=== PATIENT | female | born 1945 | race Caucasian/White ===

== ENCOUNTER 2017-03-29 08:00 | Emergency (ER) | payer MEDICARE, OTHER ==
[2017-03-29 08:00] VITALS: BP 95/66
--- NOTE | 2017-03-29 08:58 | EKG ---
[address] [address] Test Date: 2017-03-29 Test Time: 08:38:24 Pat Name: CHERYL ART Department: Room: Gender: F Industrial Tractor Driver: JEAN CARLOS : 1945 Requested By: DENNY LUA Order Number: [id number] Reading MD: Nathaniel Baez Measurements Intervals [place] Rate: 51 P: 60 OK: 192 QRS: 25 QRSD: 70 T: 47 QT: 448 QTc: 415 Interpretive Statements SINUS RHYTHM NONSPECIFIC ST-T WAVE CHANGES. RI6.01 No previous ECG available for comparison Electronically Signed On 04-03-2017 9:34:25 DECAL APPLIER by Nathaniel Baez
[2017-03-29] MEDS ORDERED: ONDANSETRON PF 4 MG/2 ML VIAL. IV ONE (09:00)
[2017-03-29] MEDS ORDERED: IV NORMAL SALINE 1,000ML 1,000 ML IV ONE (09:00)
--- NOTE | 2017-03-29 09:22 | PHYS DOC ---
Adult General Chief Complaint Chief Complaint: DIZZY/LIGHT HEADED [facility] HPI Patient is a 71 year old F who presents with nausea and lightheadedness just after taking her Fosamax this morning. She takes no other medications other than Fosamax and today was the first dose of Fosamax. Her symptoms resolved without intervention. She has no other associated symptoms. She has no other exacerbating or relieving factors. Review of Systems Review of Systems Constitutional: Denies fever or chills [] Eyes: Denies change in visual acuity, redness, or eye pain [] HENT: Denies nasal congestion or sore throat [] Respiratory: Denies cough or shortness of breath [] Cardiovascular: No additional information not addressed in HPI [] GI: Denies abdominal pain, nausea, vomiting, bloody stools or diarrhea [] : Denies dysuria or hematuria [] Musculoskeletal: Denies back pain or joint pain [] Integument: Denies rash or skin lesions [] Neurologic: Denies headache, focal weakness or sensory changes [] Endocrine: Denies polyuria or polydipsia [] All other systems were reviewed and found to be within normal limits, except as documented in this note. Family History Family History No particular medical history was reported Current Medications Current Medications Current medications were reviewed Current Medications Medications (Trade) Dose Ordered Sig/[facility] Start Time Stop Time Status Last Admin Dose Admin Ondansetron HCl (Zofran) 4 mg 1X ONCE 03/29/17 09:00 03/29/17 09:01 DC Sodium Chloride 1,000 ml @ 1,000 mls/hr 1X ONCE 03/29/17 09:00 03/29/17 09:59 03/29/17 08:58 1,000 MLS/HR Allergies Allergies Allergies Coded Allergies Type Severity Reaction Last Updated Verified acetaminophen Allergy Unknown 03/29/17 Yes codeine Allergy Unknown 03/29/17 Yes morphine Allergy Unknown 03/29/17 Yes oxycodone Allergy Unknown 03/29/17 Yes promethazine Allergy Unknown 03/29/17 Yes tramadol Allergy Unknown 03/29/17 Yes Physical Exam Physical Exam Constitutional: Well developed, well nourished, no acute distress, non-toxic appearance. [] HENT: Normocephalic, atraumatic, Eyes: EOMI, conjunctiva normal, no discharge. [] Neck: Normal range of motion, no tenderness, supple, no stridor. [] Cardiovascular:Heart rate regular rhythm, no murmur [] Lungs & Thorax: Bilateral breath sounds clear to auscultation [] Abdomen: Bowel sounds normal, soft, no tenderness, no masses, no pulsatile masses. [] Skin: Warm, dry, no erythema, no rash. [] Extremities: No tenderness, no cyanosis, no clubbing, ROM intact, no edema. [] Neurologic: Alert and oriented X 3, normal motor function, normal sensory function, no focal deficits noted. [] Psychologic: Affect normal, judgement normal, mood normal. [] Current Patient Data Vital Signs Heart rate 50 - 60, all other vital signs within normal limits. Please review nursing documentation for specifics EKG EKG [] Radiology/Procedures Radiology/Procedures [] Course & Med Decision Making Course & Med Decision Making Pertinent Labs and Imaging studies reviewed. (See chart for details) [] Dragon Disclaimer Dragon Disclaimer This electronic medical record was generated, in whole or in part, using a voice recognition dictation system. Departure Departure: Impression: Primary Impression: Nausea Additional Impression: Lightheadedness Disposition: 01 HOME, SELF-CARE Condition: STABLE Referrals: PCP,NO (PCP) Patient Instructions: Dizziness Additional Instructions: Vielka was seen in the emergency department for lightheadedness and nausea. No emergency medical condition was found on history or physical exam. Her symptoms resolved. She was given IV fluids. Her primary care doctor was contacted by phone. She was encouraged follow-up with her primary care doctor as needed for further management. Problem Qualifiers DENNY LUA MD Mar 29, 2017 09:22
== END 2017-03-29 10:12 | disposition home or self-care (01) ==
LOC: ER 08:00
DX: R11.0 Nausea (principal); R42 Dizziness and giddiness; Z88.5 Allergy status to narcotic agent; Z88.6 Allergy status to analgesic agent; Z88.8 Allergy status to other drugs, medicaments and biological substances
CPT/HCPCS: 93005; 96360; 99284-25; J7030

== ENCOUNTER 2020-02-01 01:09 | Emergency (ER) | payer MEDICARE, OTHER ==
[~2020-02-01] VITALS: Ht 170.2 cm; Wt 58.0 kg
--- NOTE | 2020-02-01 01:24 | PHYS DOC ---
Past History Past Medical History: Other Past Surgical History: No Surgical History Alcohol Use: None Drug Use: None General Adult EDM: Chief Complaint: CHEST PAIN HPI: HPI: 74 yo F PMH OA presents to the ed with c/o sharp chest pain that started around 3:30 PM yesterday but radiates to her shoulders and upper back with associated nausea and one episode of nonbloody nonbilious vomiting. Patient states symptoms resolved around 7:15 PM and return around 9 PM. At that point the pain was intensifying and moved to her jaw. States around 1 AM started feeling " dizzy," described as " I feel drugged in my head, I am not thinking right." Per RN patient became weak in the waiting room chair but did not fully pass out. Patient reports she only follows at [facility] [facility] and had an ultrasound November 09 that showed gallstones. History of a chemical stress test within the past 5 to 6 years that were unremarkable. Never had a cardiac cath. No family history of cardiac disease, aortic aneurysm or dissection, coagulopathy, connective tissue disorder or sudden under the age of 50. Patient takes no routine medications. Does not smoke tobacco or use any cocaine. No history of alcohol abuse. Patient with no history of syncope. Reports she has been told her heart rate is always low. Primary care physician is Dr. Ravi. Hx also obtained from a red book where pt keeps a timeline of her sxs. Review of Systems: Review of Systems: Constitutional: Denies fever or chills Eyes: Denies change in visual acuity HENT: Denies nasal congestion or sore throat Respiratory: Denies cough or shortness of breath Cardiovascular: Denies chest pain or edema GI: Denies abdominal pain, nausea, vomiting, bloody stools or diarrhea : Denies dysuria Musculoskeletal: Denies back pain or joint pain Integument: Denies rash Neurologic: Denies headache, focal weakness or sensory changes Endocrine: Denies polyuria or polydipsia Lymphatic: Denies swollen glands Psychiatric: Denies depression or anxiety Allergies: Allergies: Allergies Coded Allergies Type Severity Reaction Last Updated Verified acetaminophen Allergy Unknown 03/29/17 Yes codeine Allergy Unknown 03/29/17 Yes morphine Allergy Unknown 03/29/17 Yes oxycodone Allergy Unknown 03/29/17 Yes promethazine Allergy Unknown 03/29/17 Yes tramadol Allergy Unknown 03/29/17 Yes Physical Exam: PE: Constitutional: Well developed, well nourished, no acute distress, non-toxic appearance, very thin HENT: Normocephalic, atraumatic, Eyes: EOMI, conjunctiva normal, no discharge. Neck: Normal range of motion, supple, Cardiovascular: S1/2 present, regular rhythm Lungs & Thorax: Speaking in full sentences, bilateral equal chest rise, no tachypnea or increased work of breathing Abdomen: soft, no ruq tenderness, negative Varela sign, no rigidity or guarding Skin: Warm, dry, no erythema, no rash. [] Back: No tenderness, no CVA tenderness. [] Extremities: No tenderness, no cyanosis, no edema Neurologic: Alert and oriented X 3, normal motor function, normal sensory function, no focal deficits noted. [] Psychologic: Affect normal, judgement normal, mood normal. [] EKG: EKG: Sinus rhythm at 56 bpm, no axis deviation, borderline NH interval, no T wave inversions, no ST elevations or ST depressions Radiology/Procedures: Radiology/Procedures: IMAGING REPORT Signed PATIENT: CHERYL ART ACCOUNT: [id number] : 1945 LOCATION: ER AGE: 74 SEX: F EXAM STATUS: PRE ER ORD. PHYSICIAN: SERENA ABREU DO REASON: cp PROCEDURE: PORTABLE CHEST 1V Single view chest dated 02/01/2020. No comparison available. Clinical data indication: Chest pain. FINDINGS: Single upright portable exam performed. Heart and mediastinal contours within normal limits. Lungs are somewhat hyperinflated but otherwise clear. No consolidation or pleural effusion. No pneumothorax. There is a small i ndeterminate nodular focus in the right upper lobe laterally overlying the inferior margin of the scapula. IMPRESSION: 1. No acute radiographic abnormality. 2. Possible small nodule at the right upper lobe versus sclerotic focus involving the distal right scapula. Suggest a follow-up PA and lateral exam in 2-3 months to better evaluate. Electronically signed by: Bao Bloom MD (02/01/2020 2:00 AM) [facility] [place]CTATED AND SIGNED BY: BAO BLOOM MD DATE: 02/01/20 0158 CC: BABATUNDE HERMOSILLO DO; VOHS,SERENA M DO ~MTH0 0 Heart Score: HEART Score for Chest Pain: HEART Score for Chest Pain Response (Comments) Value History Moderately Suspicious 1 ECG Normal 0 Age > 65 2 Risk Factors No Risk Factors 0 Troponin < Normal Limit 0 Total 3 Risk Factors: Risk Factors: DM, Current or recent (<one month) smoker, HTN, HLP, family history of CAD, obesity. Risk Scores: Score 0 - 3: 2.5% MACE over next 6 weeks - Discharge Home Score 4 - 6: 20.3% MACE over next 6 weeks - Admit for Clinical Observation Score 7 - 10: 72.7% MACE over next 6 weeks - Early Invasive Strategies Course & Med Decision Making: Course & Med Decision Making Pertinent Labs and Imaging studies reviewed. (See chart for details) Concern for atypical chest pain,troponin negative and D-dimer within normal limits. Chest x-ray unremarkable (very narrow mediastinum). BP 135/69. Heart score 3. Will discharge home with strict ED return precautions were given for chest pressure, heaviness or tightness or difficulties breathing. Encouraged urgent outpatient follow-up with PMD and cardiology. Life-threatening processes were considered but are low suspicion at this time, given history, physical exam and ED workup. Pt was educated on all prescription medications and adverse effects. All patient's questions were answered and pt was stable at time of discharge. Life/limb-threatening differential includes but is not limited to, acute myocardial infarction, aortic dissection, congestive heart failure, esophageal injury including rupture, surgical abdomen, arrhythmia, cardiomyopathy, myocarditis, pericarditis, peptic ulcer disease, pneumomediastinum, pneumonia, pneumothorax, pulmonary embolus, unstable angina, rib fracture, contusion, pericardial tamponade or effusion, pulmonary contusion I spoken with the patient and her caregivers. I explained the patient's condition, diagnoses and treatment plan based on the information available to me at this time. I have answered the patient and her caregiver's questions and addressed any concerns. The patient and her caregivers have a good understanding of patient's diagnosis, condition and treatment plan as can be expected at this point. Vital signs have been stable. Patient's condition is stable and appropriate for discharge from the emergency department. Patient will pursue further outpatient evaluation with primary care physician or other designated or consulting physician as outlined in the discharge instructions. The patient and/or caregivers are agreeable to this plan of care and follow-up instructions have been explained in detail. The patient and/or caregivers have received these instructions in written form and have expressed an understanding of the discharge instructions. The patient and/or caregivers are aware that any significant change of condition or worsening of symptoms should prompt immediate return to this or the closest emergency department or call to [address] Disclaimer: [place] Disclaimer: This electronic medical record was generated, in whole or in part, using a voice recognition dictation system. Departure Departure: Impression: Primary Impression: Chest pain Disposition: 01 DC HOME SELF CARE/HOMELESS Condition: STABLE Referrals: BABATUNDE HERMOSILLO DO (PCP) in 2-3 days Patient Instructions: Chest Pain (Nonspecific) Additional Instructions: FOLLOW UP WITH CARDIOLOGY: [facility] [id number] [address] OR [facility] [address] [address] EMERGENCY DEPARTMENT GENERAL DISCHARGE INSTRUCTIONS Thank you for coming to [facility] (ED) today and trusting us with you care. We trust that you had a positivie experience in our Emergency Department. If you wish to speak to the department management, you may call the director at [phone]. YOUR FOLLOW UP INSTRUCTIONS ARE FOLLOWS: 1. Do you have a private Doctor? If you do not have a private doctor, please ask for a resource list of physicians or clinics that may be able to assist you with follow up care. 2. The Emergency Physician has interpreted your x-rays. The X-Ray specialist will also review them. If there is a change in the findings, you will be notified in 48 hours when at all possible. 3. A lab test or culture has been done, your results will be reviewed and you will be notified if you need a change in treatment. ADDITIONAL INSTRUCTIONS AND INFORMATION: 1. Your care today has been supervised by a physician who is specially trained in emergency care. Many problems require more than one evaluation for a complete diagnosis and treatment. We recommend that you schedule your follow up appointment as hernandez mmended to ensure complete treatment of you illness or injury. If you are unable to obtain follow up care and continue to have a problem, or if your condition worsens, we recommend that you return to the ED. 2. We are not able to safely determine your condition over the phone nor are we able to give sound medical advice over the phone. For these safety reasons, if you call for medical advice we will ask you to come to the ED for further evaluation. 3. If you have any questions regarding these discharge instructions please call the ED at [phone]. SAFETY INFORMATION: In the interest of safety, wellness, and injury prevention; we encourage you to wear your sealbelt, if you smoke; quite smoking, and we encourage family to use a protective helmet for bicycling and other sporting events that present an increased risk for head injury. IF YOUR SYMPTOMS WORSEN OR NEW SYMPTOMS DEVELOP, OR YOU HAVE CONCERNS ABOUT YOUR CONDITION; OR IF YOUR CONDITION WORSENS WHILE YOU ARE WAITING FOR YOUR FOLLOW UP APPOINTMENT; EITHER CONTACT YOUR PRIMARY CARE DOCTOR, THE PHYSICIAN WHOSE NAME AND NUMBER YOU WERE GIVEN, OR RETURN TO THE ED IMMEDIATELY. SERENA GONZALEZ DO Feb 01, 2020 01:24
--- NOTE | 2020-02-01 01:26 | EKG ---
[facility] ED [facility] [address] [place] [id number] Test Date: 2020-02-01 Test Time: 01:15:04 Pat Name: CHERYL ART Department: Room: Gender: F Financial Aid Director: : 1945 Requested By: SERENA ABREU Order Number: [id number] Reading MD: Measurements Intervals [place] Rate: 56 P: FL: QRS: -1 QRSD: 70 T: 44 QT: 416 QTc: 404 Interpretive Statements IRREGULAR RHYTHM, NO P-WAVE FOUND LEFTWARD AXIS QRS(T) CONTOUR ABNORMALITY CONSISTENT WITH SEPTAL INFARCT AGE UNDETERMINED ABNORMAL ECG RI6.02 No previous ECG available for comparison
[2020-02-01 01:33] LABS: BASO # 0.1 x10^3/uL (0.0-0.2); BASO % 1 % (0-3); EOS # 0.2 x10^3/uL (0.0-0.7); EOS % 2 % (0-3); HEMATOCRIT 42.3 % (36.0-47.0); HEMOGLOBIN 13.5 g/dL (12.0-15.5); LYMPH # 3.2 x10^3/uL (1.0-4.8); LYMPH % 39 % (24-48); MEAN CORPUSCULAR HEMOGLOBIN 29 pg (25-35); MEAN CORPUSCULAR HGB CONC 32 g/dL (31-37); MEAN CORPUSCULAR VOLUME 90 fL (79-100); MONO # 0.7 x10^3/uL (0.0-1.1); MONO % 8 % (0-9); NEUT # 4.1 x10^3uL (1.8-7.7); NEUT % 50 % (31-73); PLATELET COUNT 310 x10^3/uL (140-400); RED BLOOD COUNT 4.71 x10^6/uL (3.50-5.40); WHITE BLOOD COUNT 8.2 x10^3/uL (4.0-11.0)
[2020-02-01 01:38] LABS: CALCIUM 9.7 mg/dL (8.5-10.1); CREATININE 0.7 mg/dL (0.6-1.0); GFR 81.6
[2020-02-01 01:50] LABS: ALBUMIN 3.5 g/dL (3.4-5.0); ALBUMIN/GLOBULIN RATIO 1.1 (1.0-1.7); MAGNESIUM 2.3 mg/dL (1.8-2.4); TOTAL BILIRUBIN 0.4 mg/dL (0.2-1.0); TOTAL PROTEIN 6.6 g/dL (6.4-8.2)
[2020-02-01 01:51] LABS: POTASSIUM 4.4 mmol/L (3.5-5.1)
--- NOTE | 2020-02-01 02:03 | RAD ---
Single view chest dated 02/01/2020. No comparison available. Clinical data indication: Chest pain. FINDINGS: Single upright portable exam performed. Heart and mediastinal contours within normal limits. Lungs ar e somewhat hyperinflated but otherwise clear. No consolidation or pleural effusion. No pneumothorax. There is a small indeterminate nodular focus in the right upper lobe laterally overlying the inferior margin of the scapula. IMPRESSION: 1. No acute radiographic abnormality. 2. Possible small nodule at the right upper lobe versus sclerotic focus involving the distal right sc apula. Suggest a follow-up PA and lateral exam in 2-3 months to better evaluate. Electronically signed by: Bao Bloom MD (02/01/2020 2:00 AM) [facility]
[2020-02-01] MEDS ORDERED: KETOROLAC 15 MG/ML VIAL. IVP ONE (04:00)
== END 2020-02-01 04:05 | disposition home or self-care (01) ==
LOC: ER 01:09
DX: R07.89 Other chest pain (principal); R11.2 Nausea with vomiting, unspecified; R42 Dizziness and giddiness; Z88.5 Allergy status to narcotic agent; Z88.6 Allergy status to analgesic agent; Z88.8 Allergy status to other drugs, medicaments and biological substances
CPT/HCPCS: 36415; 71045; 80053; 83690; 83735; 83880; 84484; 85025; 85379; 93005; 96374; 99285; J1885